=== PATIENT | female | born 1955 | race Caucasian/White ===

== ENCOUNTER 2023-02-07 01:47 | Outpatient (CLI) | payer MEDICARE, BC, SELFPAY | END 2023-02-07 01:48 | disposition home or self-care (01) | LOC: AMB 02-09 12:52 | PROVIDERS: Visit Provider Family Medicine | DX: I62.00 Nontraumatic subdural hemorrhage, unspecified (principal) | CPT/HCPCS: A0425; A0426; A0427 ==